=== PATIENT | female | born 1935 | race Caucasian/White ===

== ENCOUNTER 2017-09-22 13:01 | Outpatient (CLI) | payer MEDICARE, BC ==
--- NOTE | 2017-09-22 14:05 | RAD ---
CHEST 2 VIEWS: HISTORY: Dyspnea. COMPARISON: 09/22/16. FINDINGS: Slight elongation of the aorta. Normal cardiac silhouette. Pulmonary vessels and hilum are normal. Costophrenic angles are clear. Lungs are hyperinflated, without consolidation or mass. No pneumoth orax or osseous abnormality. IMPRESSION: 1. No acute cardiopulmonary process. 2. Hyperinflation with chronic changes of the lung parenchyma. POS: [facility]
== END 2017-09-22 13:02 | disposition home or self-care (01) ==
LOC: RAD 13:01
PROVIDERS: ATTEND Internal Medicine Pulmonary Disease
DX: R06.00 Dyspnea, unspecified (principal); J98.11 Atelectasis
CPT/HCPCS: 71046

== ENCOUNTER 2018-10-20 10:23 | Outpatient (CLI) | payer MEDICARE, BC ==
--- NOTE | 2018-10-20 15:41 | MRI ---
MRI BRAIN WITH AND WITHOUT CONTRAST: INDICATION: TIA. COMPARISON: No comparison studies. FINDINGS: Mild cortical volume loss consistent with age. Mild to moderate chronic ischemic white matter change s consistent with age. No evidence of restricted diffusion. No evidence of mass or edema. There ar e ischemic changes in the brainstem. Intracranial internal carotid arteries and proximal cerebral ar teries show expected flow voids. No abnormal enhancement identified on postcontrast images. Paran navneet sinuses and mastoids are clear. IMPRESSION: Mild to moderate chronic ischemic white matter changes consistent with age. No evidence of acute inf arct. POS: [facility]
[2018-10-20] MEDS ORDERED: Gadobenate Dimeglumine 529 MG/1 ML (20ML VIAL) ONE (16:10)
== END 2018-10-20 10:24 | disposition home or self-care (01) ==
LOC: BICMRI 10:23
PROVIDERS: ATTEND Psychiatry & Neurology Neurology
DX: G45.9 Transient cerebral ischemic attack, unspecified (principal)
CPT/HCPCS: 70553; 82565; A9577

== ENCOUNTER 2019-04-19 11:00 | Outpatient (CLI) | payer MEDICARE, BC ==
--- NOTE | 2019-04-19 11:17 | RAD ---
XR Chest Pa Lat STANDARD HISTORY: Cough COMPARISON: 09/22/2017 FINDINGS: The heart size is borderline. The aorta is tortuous. There are chronic parenchymal changes. A patchy opacity is seen in the right lower lung with adjacent small pleural effusion. IMPRESSION: Findings are suspicious for right-sided pneumonia
== END 2019-04-19 11:01 | disposition home or self-care (01) ==
LOC: BICRAD 11:00
PROVIDERS: ATTEND Family Medicine
DX: R05 Cough (principal)
CPT/HCPCS: 71046

== ENCOUNTER 2019-05-10 13:49 | Outpatient (CLI) | payer MEDICARE, BC ==
--- NOTE | 2019-05-10 14:14 | RAD ---
EXAM: XR Chest Pa Lat STANDARD PROVIDED CLINICAL HISTORY: Pneumonia COMPARISON: 04/19/2019 FINDINGS: Cardiac and mediastinal silhouettes is unchanged in appearance. Extensive emphysematous changes are r edemonstrated. Persistent right pleural fluid with adjacent atelectasis and/or infiltrate. Patchy parenchymal opacity involving the right mid and upper lung zone since appears less conspicuous on the current study. There is no evidence for pneumothorax. Small amount of left pleural fluid may also be present. IMPRESSION: Interval improvement in aeration involving right mid and upper lung zone. Otherwise stable exam.
== END 2019-05-10 13:50 | disposition home or self-care (01) ==
LOC: BICRAD 13:49
PROVIDERS: ATTEND Family Medicine
DX: J18.9 Pneumonia, unspecified organism (principal)
CPT/HCPCS: 71046

== ENCOUNTER 2019-11-27 09:12 | Outpatient (CLI) | payer MEDICARE, BC ==
--- NOTE | 2019-11-27 09:58 | BD ---
EXAM: Bone densitometry using DEXA HISTORY: 83 yo female. Screening for postmenopausal osteoporosis FINDINGS: L1--bone mineral density 0.798 g/sq cm; T score -1.7 ; Z score 0.7 L2--bone mineral density 0.833 g/sq cm; T score -1.8 ; Z score 0.9 L3--bone mineral density 0.997 g/sq cm; T score -0.8 ; Z score 2.1 L4--bone mineral density 1.161 g/sq cm; T score 0.9 ; Z score 3.8 Total L1-L4--bone mineral density 0.955 g/sq cm; T score -0.8 ; Z score 1.8 Left femoral neck--bone mineral density0.697; T score -1.4 ; Z score 1.0 Total proximal left femur--bone mineral density 0.847; T score -0.8 ; Z score 1.4 The 10 year fracture risk for a major osteoporotic fracture is 15% and for a hip fracture is 4.4%. IMPRESSION: Osteopenia
== END 2019-11-27 09:13 | disposition home or self-care (01) ==
LOC: BICMAMMO 09:12
PROVIDERS: ATTEND Nurse Practitioner Family
DX: Z13.820 Encounter for screening for osteoporosis (principal); M85.89 Other specified disorders of bone density and structure, multiple sites; Z78.0 Asymptomatic menopausal state
CPT/HCPCS: 77080

== ENCOUNTER 2020-11-06 15:34 | Outpatient (CLI) | payer MEDICARE, BC ==
[2020-11-07 12:47] LABS: SARS-CoV-2 PCR by NAA Not Detected (NotDetected)
== END 2020-11-06 15:35 | disposition home or self-care (01) ==
LOC: LABBT 15:34
PROVIDERS: ATTEND Ophthalmology
DX: Z01.812 Encounter for preprocedural laboratory examination (principal); Z20.822 Contact with and (suspected) exposure to COVID-19
CPT/HCPCS: U0003; U0005

== ENCOUNTER 2021-01-02 10:47 | Outpatient (CLI) | payer MEDICARE, BC | END 2021-01-02 10:48 | disposition home or self-care (01) | LOC: BICRAD 10:47 | PROVIDERS: ATTEND Family Medicine | DX: M54.2 Cervicalgia (principal); M54.50 Low back pain, unspecified; M47.812 Spondylosis without myelopathy or radiculopathy, cervical region; M47.816 Spondylosis without myelopathy or radiculopathy, lumbar region | CPT/HCPCS: 72040; 72100 ==

== ENCOUNTER 2023-08-16 11:01 | Outpatient (CLI) | payer MEDICARE | END 2023-08-16 11:02 | disposition home or self-care (01) | LOC: BICRAD 11:01 | PROVIDERS: ATTEND Family Medicine | DX: J69.0 Pneumonitis due to inhalation of food and vomit (principal) | CPT/HCPCS: 71046 ==

== ENCOUNTER 2023-08-28 20:05 | Inpatient (IN) | payer MEDICARE ==
[2023-08-28 20:32] VITALS: BMI 18.9
[2023-08-28] MEDS ORDERED: Ondansetron ODT 4 MG TAB PO PRN (20:43)
[2023-08-28] MEDS ORDERED: Acetaminophen 325 MG TAB PO PRN (20:43)
[2023-08-28 22:18] LABS: Troponin I 0.032 ng/mL (< 0.028)
[2023-08-28] MEDS: Famotidine/PF 20 mg/2ml Vial SLOW IVP SCH (22:39)
[2023-08-28] MEDS: Lactated Ringer's 1,000 ML IV SCH (22:40)
[2023-08-28 23:10] LABS: Iron 32 ug/dL (50-170); Iron Binding Capacity, Total 313 mcg/dL (265-497)
[2023-08-29] MEDS: Melatonin 3 MG TAB PO SCH (07:59)
[2023-08-29 08:54] LABS: #Basophils 0.08 10x3/uL (0.0-0.2); %Basophils 0.8 % (0.0-1.0); %Lymphocytes 7.3 % (21.0-51.0); %Monocytes 8.2 % (0.0-10.0); %Neutrophils 81.6 % (42.0-75.0); Hematocrit 26.4 % (36.0-47.0); Hemoglobin 8.8 g/dL (12.0-16.0); Mean Corpuscular HGB CONC 33.3 g/dL (32.0-36.0); Mean Corpuscular Hemoglobin 30.2 pg (27.0-31.0); Mean Corpuscular Volume 90.7 fL (78.0-98.0); Mean Platelet Volume 9.4 fL (7.4-10.4); Platelet Count 223 10x3/uL (130-400); RBC Distribution Width 16.8 % (11.5-14.5); Red Blood Cell (RBC) Count 2.91 mill/uL (4.20-5.40)
[2023-08-29] MEDS: Multivitamin W/ Minerals 1 TAB PO SCH (09:03)
[2023-08-29] MEDS: Escitalopram Oxalate 10 mg Tablet PO SCH (09:03)
[2023-08-29 09:26] LABS: Anion Gap 16 mmol/L (10-20); BUN (Urea Nitrogen) 14 mg/dL (9.8-20.1); Calc. Creatinine Clearance 39 mL/min (70-130); Calcium 7.9 mg/dL (7.8-10.44); Carbon Dioxide 19 mmol/L (23-31); Chloride 107 mmol/L (98-107); Estimated GFR 68; Glucose 181 mg/dL (83-110); Potassium 3.4 mmol/L (3.5-5.1); Sodium 139 mmol/L (136-145)
[2023-08-29] MEDS ORDERED: Azithromycin 200 MG/5 ML Oral Suspension PO SCH (18:00)
[2023-08-29] MEDS ORDERED: cefTRIAXone\\ROCEPHIN 1 GM in Sodium Chloride 0.9% 100 ML IVPB SCH (18:00)
[2023-08-29] MEDS: Atorvastatin Calcium 40 MG TAB PO SCH (21:18)
[2023-08-30 04:03] LABS: #Basophils 0.06 10x3/uL (0.0-0.2); %Basophils 0.8 % (0.0-1.0); %Lymphocytes 11.3 % (21.0-51.0); %Neutrophils 72.1 % (42.0-75.0); Hematocrit 26.3 % (36.0-47.0); Hemoglobin 8.7 g/dL (12.0-16.0); Mean Corpuscular HGB CONC 33.1 g/dL (32.0-36.0); Mean Corpuscular Volume 87.7 fL (78.0-98.0); Mean Platelet Volume 9.5 fL (7.4-10.4); Platelet Count 214 10x3/uL (130-400); RBC Distribution Width 16.9 % (11.5-14.5)
[2023-08-30 05:21] LABS: Anion Gap 10 mmol/L (10-20); BUN (Urea Nitrogen) 12 mg/dL (9.8-20.1); Calc. Creatinine Clearance 43 mL/min (70-130); Calcium 8.4 mg/dL (7.8-10.44); Carbon Dioxide 24 mmol/L (23-31); Cardiac Risk 3.5 (Less than 4.5); Chloride 106 mmol/L (98-107); Cholesterol 171 mg/dl (< 200 Desired); Estimated GFR 77; Glucose 116 mg/dL (83-110); HDL Cholesterol 49 mg/dL (>60 Neg Risk); Hemoglobin A1c 5.5 % (4.0-6.0); LDL Cholesterol, Calculated 108 mg/dL; Potassium 3.2 mmol/L (3.5-5.1); Sodium 137 mmol/L (136-145); Triglycerides 71 mg/dL (Less than 150)
[2023-08-30] MEDS: Potassium Chloride 20 MEQ TAB PO SCH (10:06)
[2023-08-30] MEDS: Aspirin 81 mg Enteric Coated Tablet PO SCH (10:06)
[2023-08-30] MEDS: Pantoprazole 40 MG VIAL IVP SCH (10:07)
[2023-08-30] MEDS ORDERED: GoLYTELY 4,000 ml Bottle PO SCH (18:15)
[2023-08-30] MEDS: Ondansetron PF 4 MG/2 ML Vial IVP PRN (21:19)
[2023-08-31 04:08] LABS: #Basophils Less than 0.03 10x3/uL (0.0-0.2); %Basophils 0.3 % (0.0-1.0); %Eosinophils 1.4 % (0.0-10.0); %Lymphocytes 10.8 % (21.0-51.0); %Monocytes 10.5 % (0.0-10.0); %Neutrophils 76.5 % (42.0-75.0); Hematocrit 24.6 % (36.0-47.0); Hemoglobin 8.1 g/dL (12.0-16.0); Mean Corpuscular HGB CONC 32.9 g/dL (32.0-36.0); Mean Corpuscular Volume 91.1 fL (78.0-98.0); Mean Platelet Volume 9.6 fL (7.4-10.4); Platelet Count 220 10x3/uL (130-400); RBC Distribution Width 16.5 % (11.5-14.5)
[2023-08-31 04:36] LABS: Anion Gap 13 mmol/L (10-20); BUN (Urea Nitrogen) 13 mg/dL (9.8-20.1); Calc. Creatinine Clearance 44 mL/min (70-130); Calcium 8.1 mg/dL (7.8-10.44); Carbon Dioxide 27 mmol/L (23-31); Chloride 104 mmol/L (98-107); Estimated GFR 81; Glucose 118 mg/dL (83-110); Potassium 3.5 mmol/L (3.5-5.1); Sodium 140 mmol/L (136-145)
[2023-08-31] MEDS: Lactated Ringer's 1,000 ML IV SCH (08:03)
[2023-08-31] MEDS: Metoprolol Tartrate 5 MG (5 mL) VIAL IVP SCH ×2 (08:45→16:44)
[2023-08-31] MEDS: Metoprolol Tartrate 50 MG TAB PO SCH ×2 (08:50→16:44)
[2023-08-31] MEDS: Amiodarone 200 MG TAB PO SCH (08:50)
[2023-08-31 11:44] LABS: Hematocrit 26.2 % (36.0-47.0); Hemoglobin 8.5 g/dL (12.0-16.0); Mean Corpuscular HGB CONC 32.4 g/dL (32.0-36.0); Mean Corpuscular Hemoglobin 29.4 pg (27.0-31.0); Mean Corpuscular Volume 90.7 fL (78.0-98.0); Mean Platelet Volume 8.7 fL (7.4-10.4); Platelet Count 222 10x3/uL (130-400); RBC Distribution Width 16.3 % (11.5-14.5); Red Blood Cell (RBC) Count 2.89 mill/uL (4.20-5.40)
[2023-09-01] MEDS: Promethazine 25 MG TAB PO PRN (02:05)
[2023-09-01] MEDS: GoLYTELY 4,000 ml Bottle PO SCH (02:06)
[2023-09-01 04:59] LABS: #Basophils 0.04 10x3/uL (0.0-0.2); %Basophils 0.4 % (0.0-1.0); %Eosinophils 5.4 % (0.0-10.0); %Lymphocytes 12.9 % (21.0-51.0); %Monocytes 10.2 % (0.0-10.0); %Neutrophils 70.5 % (42.0-75.0); Hematocrit 25.9 % (36.0-47.0); Hemoglobin 8.4 g/dL (12.0-16.0); Mean Corpuscular HGB CONC 32.4 g/dL (32.0-36.0); Mean Corpuscular Hemoglobin 29.2 pg (27.0-31.0); Mean Corpuscular Volume 89.9 fL (78.0-98.0); Mean Platelet Volume 9.5 fL (7.4-10.4); Platelet Count 268 10x3/uL (130-400); RBC Distribution Width 16.2 % (11.5-14.5); Red Blood Cell (RBC) Count 2.88 mill/uL (4.20-5.40)
[2023-09-01 05:50] LABS: Anion Gap 11 mmol/L (10-20); BUN (Urea Nitrogen) 15 mg/dL (9.8-20.1); Calc. Creatinine Clearance 40 mL/min (70-130); Calcium 8.2 mg/dL (7.8-10.44); Carbon Dioxide 25 mmol/L (23-31); Chloride 99 mmol/L (98-107); Estimated GFR 70; Glucose 90 mg/dL (83-110); Potassium 3.4 mmol/L (3.5-5.1); Sodium 132 mmol/L (136-145)
[2023-09-01] MEDS: Metoprolol Tartrate 50 MG TAB PO SCH (08:35)
[2023-09-01] MEDS: Potassium Chloride 20 MEQ TAB PO SCH (10:29)
[2023-09-01] MEDS ORDERED: PROPOFOL 20 ML ONE ×2 (13:17→13:48)
[2023-09-01] MEDS ORDERED: Lidocaine 1% PF 5 ML VIAL ONE (13:17)
[2023-09-01] MEDS ORDERED: ePHEDrine Sulfate 50 MG/10 ML VIAL ONE (13:54)
[2023-09-01] MEDS: Rivaroxaban 15 MG TAB PO SCH (17:55)
[2023-09-01] MEDS: Ferrous Sulfate 325 MG TAB PO SCH (17:55)
[2023-09-01] MEDS: Famotidine 20 MG TAB PO SCH (20:19)
[2023-09-01] MEDS ORDERED: Famotidine 20 MG TAB PO SCH (21:00)
[2023-09-02 06:26] LABS: #Basophils 0.04 10x3/uL (0.0-0.2); %Basophils 0.5 % (0.0-1.0); %Eosinophils 3.7 % (0.0-10.0); %Lymphocytes 7.4 % (21.0-51.0); %Monocytes 9.5 % (0.0-10.0); %Neutrophils 78.4 % (42.0-75.0); Hematocrit 25.7 % (36.0-47.0); Hemoglobin 8.3 g/dL (12.0-16.0); Mean Corpuscular HGB CONC 32.3 g/dL (32.0-36.0); Mean Corpuscular Hemoglobin 29.6 pg (27.0-31.0); Mean Corpuscular Volume 91.8 fL (78.0-98.0); Mean Platelet Volume 9.5 fL (7.4-10.4); Platelet Count 246 10x3/uL (130-400); RBC Distribution Width 15.9 % (11.5-14.5)
[2023-09-02 06:40] LABS: Anion Gap 13 mmol/L (10-20); BUN (Urea Nitrogen) 14 mg/dL (9.8-20.1); Calc. Creatinine Clearance 42 mL/min (70-130); Calcium 8.5 mg/dL (7.8-10.44); Carbon Dioxide 25 mmol/L (23-31); Chloride 101 mmol/L (98-107); Estimated GFR 76; Glucose 106 mg/dL (83-110); Potassium 3.4 mmol/L (3.5-5.1); Sodium 136 mmol/L (136-145)
[2023-09-02 08:35] LABS: Magnesium 1.9 mg/dL (1.6-2.6)
[2023-09-02] MEDS ORDERED: Iron Sucrose Complex 100 MG in Sodium Chloride 0.9% 100 ML IVPB SCH (11:15)
[2023-09-02] MEDS: Magnesium Oxide 400 MG TAB PO SCH (15:07)
[2023-09-02] MEDS: Rivaroxaban 15 MG TAB PO SCH (15:07)
[2023-09-02] MEDS: Potassium Chloride 20 MEQ TAB PO SCH (15:11)
[2023-09-02] MEDS: Sodium Ferric Gluconate 125 MG in Sodium Chloride 0.9% 100 ML IVPB SCH (15:58)
[2023-09-02 16:55] VITALS: BP 110/57; TEMP 98.2
[2023-09-03] MEDS ORDERED: Ferrous Sulfate 325 MG TAB PO SCH (17:00)
== END 2023-09-02 18:17 | disposition home health service (06) | DRG 64 ==
LOC: 2SE 20:05 → OBSVTOIN 20:43
PROVIDERS: ADMIT Student in an Organized Health Care Education/Training Program; ATTEND Student in an Organized Health Care Education/Training Program
PROC: 30233N1 Transfusion of Nonautologous Red Blood Cells into Peripheral Vein, Percutaneous Approach (ICD-10-PCS; 2023-08-29)
PROC: 0DJ08ZZ Inspection of Upper Intestinal Tract, Via Natural or Artificial Opening Endoscopic (ICD-10-PCS; principal; 2023-09-01)
PROC: 0DJD8ZZ Inspection of Lower Intestinal Tract, Via Natural or Artificial Opening Endoscopic (ICD-10-PCS; 2023-09-01)
DX: I63.9 Cerebral infarction, unspecified (principal); I50.23 Acute on chronic systolic (congestive) heart failure; J96.01 Acute respiratory failure with hypoxia; D62 Acute posthemorrhagic anemia; K92.2 Gastrointestinal hemorrhage, unspecified; I48.91 Unspecified atrial fibrillation; K21.9 Gastro-esophageal reflux disease without esophagitis; E78.5 Hyperlipidemia, unspecified; M19.90 Unspecified osteoarthritis, unspecified site; Z85.3 Personal history of malignant neoplasm of breast; Z92.3 Personal history of irradiation; H40.9 Unspecified glaucoma; E55.9 Vitamin D deficiency, unspecified; I11.0 Hypertensive heart disease with heart failure; L93.1 Subacute cutaneous lupus erythematosus; K64.4 Residual hemorrhoidal skin tags; K64.8 Other hemorrhoids; R47.1 Dysarthria and anarthria; R47.01 Aphasia; Z79.899 Other long term (current) drug therapy; Z79.82 Long term (current) use of aspirin; Z79.01 Long term (current) use of anticoagulants; D64.9 Anemia, unspecified; R09.02 Hypoxemia; R53.1 Weakness
CPT/HCPCS: 0042T; 36415; 36416; 36430; 70450; 70551; 71045; 80048; 80053; 80061; 82274; 82550; 82728; 83036; 83540; 83550; 83735; 83880; 84145; 84443; 84484; 85025; 85610; 85730; 86850; 86900; 86901; 93005; 93010; 96365; 96366; 96368; 96375; C9113; J0456; J0696; J1940; J2405; J2704; J2916; J3490; J7120; P9016; Q0169; Q9967; S0028

== ENCOUNTER 2023-09-14 11:10 | Outpatient (CLI) | payer MEDICARE | END 2023-09-14 11:11 | disposition home or self-care (01) | LOC: BICRAD 11:10 | PROVIDERS: ATTEND Family Medicine | DX: J18.9 Pneumonia, unspecified organism (principal); R91.8 Other nonspecific abnormal finding of lung field; J90 Pleural effusion, not elsewhere classified; D50.8 Other iron deficiency anemias | CPT/HCPCS: 36415; 71046; 80053; 82728; 83540; 83550; 85025 ==